=== PATIENT | male | born 1980 | race Caucasian/White ===

== ENCOUNTER → 2023-02-19 08:57 | Outpatient (CLI) | payer SELFPAY | PROVIDERS: PCP Family Medicine; Visit Provider Nurse Practitioner Family | DX: Z02.4 Encounter for examination for driving license (principal) ==

== ENCOUNTER 2024-02-08 09:09 | Emergency (ER) | payer OTHER, SELFPAY ==
[2024-02-08 09:14] VITALS: BMI 32.5
--- NOTE | 2024-02-08 09:16 | XR_ITS ---
PROCEDURE INFORMATION: Exam: XR Left Ankle Exam date and time: 02/08/2024 9:14 AM Age: 44 years old Clinical indication: Injury or trauma; Fall; Blunt trauma; Ankle; Left TECHNIQUE: Imaging protocol: Radiologic exam of the left ankle. Views: 3 or more views. COMPARISON: CR XR FOOT LT MIN 3V 02/08/2024 9:11 AM FINDINGS: Bones/joints: Small avulsion of the lateral margin of the midfoot on the frontal and mortise projection. Soft tissues: Lateral midfoot soft tissue swelling. IMPRESSION: Small avulsion at the lateral margin of the midfoot with associated soft tissue swelling. Given projection is difficult to assess which bone was the donor site. If there is clinical necessity, CT can be performed for definitive assessment.
--- NOTE | 2024-02-08 09:16 | XR_ITS ---
PROCEDURE INFORMATION: Exam: XR Left Foot Exam date and time: 02/08/2024 9:11 AM Age: 44 years old Clinical indication: Injury or trauma; Fall; Blunt trauma; Foot; Left; Additional info: Fall, lateral sided pain TECHNIQUE: Imaging protocol: Radiologic exam of the left foot. Views: 3 or more views. COMPARISON: No relevant prior studies available. FINDINGS: Bones/joints: Normal. Soft tissues: Normal. IMPRESSION: No acute findings.
[2024-02-08 09:30] VITALS: BP 126/80; PULSE 85; RESP 18; TEMP 36.8; O2SAT 97; BMI 33.0
--- NOTE | 2024-02-08 09:45 | EXP.UTC ---
Discharge Plan Prescriptions Prescriptions: No Action methocarbamol 750 mg tablet 750 mg PO TID Patient Comments: TAKE 1 TABLET BY MOUTH THREE TIMES DAILY Referrals Follow up/Referrals: Lester Garcia [Primary Care Provider] - See instructions Activity Restrictions/Add. Instructions Additional Instructions/Restrictions: rest Ice with cold pack for 20 minutes remove may repeat for comfort every hour Corwin wrap for support and swelling no less in the shower. Be sure not too tight but not to lose either Elevate with ankle above your heart as much as possible to help reduce swelling and therefore pain Ibuprofen every 6 hours as needed for pain or inflammation. If needs something more you can take Tylenol every 4 hours as needed as long as her primary care has told he was okayed for you to take both. If improving any do not need to follow-up you can bring begin exercising 2-3 weeks after injury. Follow-up immediately if new or worsening symptoms or no noticeable improvement over the next 3-5 days. call ortho Clinical Impressions Clinical Impression: Foot fracture, left Instructions Patient Instructions: DI for Foot Fracture, Foot Fracture Discharge ED Provider: Marianna ([facility])[place] [facility] [place] HPI General Stated complaint: AO fall 02/07, left ankle/foot pain Mode of Arrival: Ambulatory Source of Information: Patient Limitations: No Limitations Time Seen by Provider: 02/08/24 09:46 Description of Symptoms (Recalled from Triage Doc. by RN): PATIENT C/O INJURY TO LEFT FOOT AND ANKLE AFTER HE MISSED THE FIRST STEP AND HE FELL DOWN APPROX 6 STAIRS ONTO GRAVEL THIS MORNING. AREA ELEVATED AND ICE PACK APPLIED. ABRASION NOTED TO RIGHT UPPER ARM HEENT Symptoms (Recalled from RN notes): No Resp Symptoms (Recalled from RN notes): No Skin Symptoms (Recalled from RN notes): No MS Symptoms (Recalled from RN notes): Yes Functional Status (Recalled from RN notes): WNL History of Present Illness Provider Complaint: 44 YR OLD MALE PRESENTS FOR C/O INJURY TO LEFT FOOT AND ANKLE AFTER HE MISSED THE FIRST STEP AND HE FELL DOWN APPROX 6 STAIRS ONTO GRAVEL THIS MORNING. AREA ELEVATED AND ICE PACK APPLIED. ABRASION NOTED TO RIGHT UPPER ARM Related Data Home Medications Medication Instructions Recorded Confirmed methocarbamol 750 mg tablet 750 mg PO TID 02/08/24 02/08/24 Allergies Allergy/AdvReac Type Severity Reaction Status Date / Time No Known Allergies Allergy Verified 02/08/24 09:16 Worker's Comp Is this a Worker's Comp case?: No [facility] Disclaimer: The information contained in this section may have been updated after the patient was seen, as this information can be updated by other users. 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) Smoking Status: Former smoker alcohol intake: never current occupational status: employed Travel in the last 8 weeks: None ROS Obtained: Yes All systems reviewed & no additional complaints except as documented Constitutional Constitutional: Reports system reviewed and no additional complaints, except as documented Eyes Eyes: Reports system reviewed and no additional complaints, except as documented ENT Ears, Nose, Mouth, and Throat: Reports system reviewed and no additional complaints, except as documented Cardiovascular Cardiovascular: Reports system reviewed and no additional complaints, except as documented Respiratory Respiratory: Reports system reviewed and no additional complaints, except as documented Gastrointestinal Gastrointestingal: Reports system reviewed and no additional complaints, except as documented Musculoskeletal Musculoskeletal: Reports system reviewed and no additional complaints, except as documented, Reports as per HPI, Reports arthralgias, Reports joint swelling and Reports limited range of motion Integumentary/Breasts Skin/Breast: Reports system reviewed and no additional complaints, except as documented Neurologic Neurologic: Reports system reviewed and no additional complaints, except as documented Hematologic/Lymphatic Henatologic/Lymphatic: Reports system reviewed and no additional complaints, except as documented Allergic/Immunologic Allergic/Immunologic: Reports system reviewed and no additional complaints, except as documented Physical Exam General General appearance: alert and in no apparent distress Respiratory Respiratory exam: Present normal lung sounds bilaterally Cardiovascular Cardiovascular exam: Present regular rate and normal rhythm Expanded Lower Extremity Exam Left: Ankle image: 1. TENDER, SWOLLEN Neurological Exam Neurological exam: Present alert and oriented X3 Skin Skin exam: Present warm and intact Medical Decision Making Medical Records Medical records reviewed: Yes I reviewed the patient's medical records. Mina Inquiry Pt receiving controlled substance: No Mina was queried for this patient: No Vital Signs: 02/08/24 09:30 Temperature 98.2 F Temperature Source Oral Pulse Rate [Right Brachial] 85 Respiratory Rate 18 Blood Pressure [Right Arm] 126/80 Blood Pressure Mean [Right Arm] 95 Blood Pressure Source [Right Arm] Automatic Cuff Blood Pressure Position [Right Arm] Sitting 02 Sat by Pulse Oximetry 97 Oxygen Delivery Method Room Air Orders (Tests/Meds): ORDERS Category Date Time Status Ankle XR - Left minimum 3 Views [XR ankle LT min 3V] Exams 02/08/24 09:16 Completed Stat XR foot LT min 3V Stat Exams 02/08/24 09:16 Completed
[2024-02-08 10:21] VITALS: BP 126/80; PULSE 85; RESP 18; TEMP 36.8; O2SAT 97
== END 2024-02-08 10:27 | disposition home or self-care (01) ==
PROVIDERS: Emergency Provider Nurse Practitioner Family; PCP Family Medicine
DX: S92.152A Displaced avulsion fracture (chip fracture) of left talus, initial encounter for closed fracture (principal); S50.811A Abrasion of right forearm, initial encounter; W10.8XXA Fall (on) (from) other stairs and steps, initial encounter
CPT/HCPCS: 73610; 73630; 99204; 99212; G0463

== ENCOUNTER 2024-03-24 08:00 | Outpatient (RCR) | payer OTHER, SELFPAY ==
--- NOTE | 2024-03-11 10:22 | HMH.PTOPEV ---
PT Outpatient Evaluation Rehab PT Outpatient Evaluation Start: 03/11/24 08:00 Freq: Status: Active Protocol: Document 03/11/24 08:02 ISAAC (Rec: 03/11/24 10:22 ISAAC [id number]) E-signed By Bonny Garcia, PT Outpatient Therapy Subjective History Subjective History Pt is a 44 y/o male who reports he sprained his L ankle at the beginning of January due to falling down 7 steps. Pt states he missed the first step and rolled his ankle inward. Pt reports he went to the [facility] [[email or web address]] where he radiographs of his ankle and foot on . Upon chart review, the ankle radiograph revealed Small avulsion at the lateral margin of the midfoot with associated soft tissue swelling. Given projection is difficult to assess which bone was the donor site. If there is clinical necessity, CT can be performed for definitive assessment. Foot radiograph was unremarkable. Pt reports he was placed in a boot he wore for a week and a half. 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 Pt reports only minimal medial ankle pain rated 1/10 at worst with applying pressure to the foot. Pt reports otherwise he is doing all functional activities well. Pt reports he does experience constant swelling of the L ankle that is worse with activities. Pt denies paresthesia. 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 Medical History: Hyperlipidemia Edema- L ankle figure 8: 67cm; R ankle figure 8: 65cm New diagnosis of cancer in past 12 No months? Chief Complaint Pain,Swelling Symptom Type Ache,Dull Symptoms Relieved By Rest/Positioning,Brace/Support Symptoms Aggravated By Physical Activity Prior Functional Limitations None Current Functional Limitations Recreation Activity,Balance Symptom Description Intermittent Level of pain today (0-10) 0 Pain scale - at its best (0-10) 0 Pain scale - at its worst (0-10) 1 Ankle/Foot Eval Gait Observation General Gait Pattern Observation No Deviations/Normal Assistive Device Ambulation Assistive Device None Palpation Tenderness left Ankle/Foot Palpation Findings Tenderness Ankle/Foot Palpation Overall Comment medial malleoli, peroneal tt 1 /4 TTP ROM Ankle/Foot Dorsiflexion w/Knee Extended 15 Active Range Motion (degrees) Ankle/Foot Plantar Flexion Active Range 40 of Motion (degrees) Ankle/Foot Eversion Active Range of 20 Motion (degrees) Ankle/Foot Inversion Active Range of 35 Motion (degrees) MMT Ankle Dorsiflexion Strength Grade 5 Normal Ankle Plantarflexion Strength Grade 4 Good Foot Eversion Strength Grade 4 Good Foot Inversion Strength Grade 4 Good Special Tests Ankle Anterior Drawer Test Negative Left Talar Tilt Test Negative Left Ankle Posterior Drawer Test Negative Left Foot/Heel Tap/Percussion Test Negative Left Lower Extremity Functional Index Activities Today, do you or would you have any difficulty at all with: a.Any of your usual work, housework or No difficulty school activities b. Your usual hobbies, recreational or No difficulty sporting activities c. Getting into or out of the bath No difficulty d. Walking between rooms No difficulty e. Putting on your shoes or socks No difficulty f. Squatting No difficulty g. Lifting an object, like a bag of No difficulty groceries from the floor h. Performing light activities around No difficulty your home i. Performing heavy activities around No difficulty your home j. Getting into or out of a car No difficulty k. Walking 2 blocks No difficulty l. Walking a mile No difficulty m. Going up or down 10 stairs (about 1 No difficulty flight of stairs) n. Standing for 1 hour No difficulty o. Sitting for 1 hour No difficulty p. Running on even ground No difficulty q. Running on uneven ground No difficulty r. Making sharp turns while running fast Moderate difficulty s. Hopping No difficulty t. Rolling over in bed No difficulty LEFI Score Lower Extremity Functional Index Score 78 Outpatient Therapy Assessment Impairments Problems/Impairmments Palpation Tenderness,Impaired Range of Motion,Impaired Strength,Impaired Recreational Activities,Impaired Running, Impaired Work Activities, Impaired Balance,Increased Edema,Subjective C/O Pain, Impaired Self Care/Self Management Prognosis Rehab Potential Good Clinical Impression Consistent with Diagnosis Yes Short Term Goals Number of Weeks 2 Improve Self Care/Self Management Yes Patient to be Ind w/ HEP Yes Membership Director Goals Number of Weeks 4 Increase Range of Motion Yes: L ankle AROM WNL Increase Strength Yes: L ankle MMT 5/5 grossly to assist with function Improve Balance Yes: L SLS on unstable surface 30 without LOB to dec fall risk Improve LEFI Score Yes: 79-80/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 Decrease Edema Yes Decrease Subjective C/O Pain Yes: Improve pain at worst to 0/10 to improve overall QOL Outpatient Therapy Plan of Care Treatment Plan May Include Therapeutic Exercise Including Home Yes Exercise Program Manual Therapy Techniques Yes Neuromuscular Re-education Yes Therapeutic Activities to Return to Yes Previous Functional/Work Level Gait Training Yes ADL/Self Care Education Yes Dry Needling Yes Thermal Modalities Yes Electrical Stimulation Yes Ultrasound/Phonophoresis Yes Iontophoresis Yes Orthotics/Bracing/Splinting Yes Vasopneumatic Compression Pump Yes Massage Yes Manual Lymphatic Drainage Yes Eval/Re-Eval Yes Frequency Times per week 1-2 Duration Number of Weeks 4 Addendums This patient is a candidate for social No or vocational rehab? Patient/Guardian verbally acknowledges Yes understanding of treatment program and consents to further treatment? Patient/Guardian verbally acknowledges Yes understanding of diagnosis, prognosis and goals for treatment? Eval Complexity PT Charges 59958 - Low Complexity Shoulder/Elbow Eval Shoulder Objective Measurements Elbow Objective Measurements PHYSICIAN CERTIFICATION: I certify the specified therapy services for Magdy Bustamante are required, authorized, and reviewed every 30 days.
== END 2024-03-24 08:05 | disposition home or self-care (01) ==
LOC: PT 08:00
PROVIDERS: Visit Provider Podiatrist
DX: R60.0 Localized edema (principal); S93.412A Sprain of calcaneofibular ligament of left ankle, initial encounter; S99.922A Unspecified injury of left foot, initial encounter
CPT/HCPCS: 97016; 97035; 97110; 97163